=== PATIENT | female | born 1995 | race Caucasian/White ===

== ENCOUNTER 2017-11-23 22:21 | Emergency (ER) | payer OTHER ==
[~2017-11-23] VITALS: Ht 160 cm; Wt 80.3 kg
[2017-11-23 22:27] VITALS: Ht 160 cm; Wt 80.3 kg
[2017-11-24 01:44] LABS: UA SPECIFIC GRAVITY >=1.030 (1.005-1.035); microscopic required? YES; urine erythrocyte NEGATIVE (NEGATIVE)
[2017-11-24 01:49] LABS: BASOPHIL % 0.6 % (0-2); RED CELL DISTRIBUTION WIDTH 11.9 % (11.5-14.5)
[2017-11-24 01:52] LABS: PLATELET COUNT 428 x10^3mcL (130-400)
[2017-11-24 01:54] LABS: ALBUMIN 3.7 g/dL (3.4-5.0); ALKALINE PHOSPHATASE 84 U/L (46-116); ALT/SGPT 34 U/L (14-59); AST/SGOT 24 U/L (15-37); BILIRUBIN TOTAL 0.48 mg/dL (0.20-1.00); CALCIUM 9.2 mg/dL (8.5-10.1); CARBON DIOXIDE 25.3 mmol/L (21-32); CHLORIDE SERUM 101 mmol/L (98-107); CREATININE SERUM 0.7 mg/dL (0.6-1.0); GFR1 > 60 mL/min; GLUCOSE SERUM 89 mg/dL (74-106); POTASSIUM SERUM 3.8 mmol/L (3.5-5.1); SODIUM SERUM 137 mmol/L (136-145)
[2017-11-24 01:57] LABS: TOTAL PROTEIN, SERUM 9.2 g/dL (6.4-8.2)
[2017-11-24 04:34] VITALS: BP 117/71
== END 2017-11-24 04:34 | disposition home or self-care (01) ==
LOC: ED 22:21
PROVIDERS: Emergency Medicine
DX: O23.41 Unspecified infection of urinary tract in pregnancy, first trimester (principal); Z3A.08 8 weeks gestation of pregnancy
CPT/HCPCS: J2765; J7030

== ENCOUNTER 2017-11-26 10:42 | Emergency (ER) | payer OTHER ==
[~2017-11-26] VITALS: Ht 160 cm; Wt 78.2 kg
[2017-11-26 12:12] LABS: UA SPECIFIC GRAVITY >=1.030 (1.005-1.035); microscopic required? YES; urine erythrocyte NEGATIVE (NEGATIVE)
[2017-11-26 12:18] LABS: PLATELET COUNT 325 x10^3mcL (130-400); RED CELL DISTRIBUTION WIDTH 12.5 % (11.5-14.5)
[2017-11-26 12:34] LABS: CALCIUM 9.5 mg/dL (8.5-10.1); CARBON DIOXIDE 16.1 mmol/L (21-32); CHLORIDE SERUM 100 mmol/L (98-107); CREATININE SERUM 0.7 mg/dL (0.6-1.0); GFR1 > 60 mL/min; GLUCOSE SERUM 130 mg/dL (74-106); POTASSIUM SERUM 3.7 mmol/L (3.5-5.1); SODIUM SERUM 133 mmol/L (136-145)
[2017-11-26 12:47] LABS: BAND NEUTROPHIL 2 % (0-10); BASOPHIL 0 % (0-2); MONOCYTE 1 % (0-7); SEGMENTED NEUTROPHILS 93 % (37-75)
[2017-11-26 12:49] LABS: rbc morphology (normal/abnorm) ABNORMAL (NORMAL)
[2017-11-26 12:50] LABS: PLATELET MORPHOLOGY PLATELETS INCREASED
[2017-11-26 15:31] VITALS: BP 120/69
== END 2017-11-26 15:32 | disposition home or self-care (01) ==
LOC: ED 10:42
PROVIDERS: Emergency Medicine
DX: O21.0 Mild hyperemesis gravidarum (principal); O23.40 Unspecified infection of urinary tract in pregnancy, unspecified trimester; E86.0 Dehydration; Z3A.00 Weeks of gestation of pregnancy not specified
CPT/HCPCS: J0696; J1200; J2765; J7030; Q0092

== ENCOUNTER 2017-12-08 11:35 | Emergency (ER) | payer OTHER ==
[~2017-12-08] VITALS: Ht 160 cm; Wt 76.2 kg
[2017-12-08 11:58] VITALS: Ht 160 cm; Wt 76.2 kg
[2017-12-08 13:08] VITALS: BP 117/68
== END 2017-12-08 13:08 | disposition home or self-care (01) ==
LOC: ED 11:35
DX: O21.9 Vomiting of pregnancy, unspecified (principal); O23.41 Unspecified infection of urinary tract in pregnancy, first trimester; Z3A.09 9 weeks gestation of pregnancy
CPT/HCPCS: Q0162

== ENCOUNTER 2018-05-04 15:32 | Emergency (ER) | payer OTHER ==
[~2018-05-04] VITALS: Ht 162.6 cm; Wt 83.6 kg
[2018-05-04 15:53] VITALS: Ht 162.6 cm; Wt 83.6 kg
[2018-05-04 17:09] VITALS: BP 129/66
== END 2018-05-04 17:25 | disposition home or self-care (01) ==
LOC: ED 15:32
DX: J03.90 Acute tonsillitis, unspecified (principal)